=== PATIENT | female | born 1955 | race Caucasian/White ===

== ENCOUNTER 2018-01-07 18:56 | Inpatient (IN) ==
[2018-01-07] MEDS ORDERED: Ibuprofen 800 MG TABLET PO ONE (19:36)
[2018-01-07] MEDS ORDERED: 0.9 % Sodium Chloride 1,000 ML IVC ONE ×2 (19:43→21:41)
[2018-01-07 20:38] LABS: Bilirubin,Urine Negative (Negative); Blood,Urine Negative (Negative); Clarity,Urine Cloudy (Clear); Color,Urine Yellow (Yellow); Glucose,Urine (UA) Normal (Normal); Ketones,Urine Negative (Negative); Leukocyte Esterase,Urine Small (Negative); Nitrite,Urine Negative (Negative); Protein,Urine 30 mg/dL (Neg-Trace); Specific Gravity,Urine 1.022 (1.010-1.025); Urobilinogen,Urine Normal (Normal)
[2018-01-07 20:41] LABS: Bacteria,Urine None Seen per hpf (None-Few); Hyaline Casts,Urine None Seen per lpf (None-Few); Squamous Epithelial Cell,Urine Many per lpf (None-Few)
[2018-01-07 20:53] LABS: Basophils % 0.2 %; Eosinophils # 0.1 K/mcL (0.0-0.6); Eosinophils % 0.4 %; Hemoglobin 10.9 g/dL (11.5-15.4); Immature Granulocytes % 0.3 % (0-4); Lymphocytes # 0.8 K/mcL (0.6-4.6); Lymphocytes % 5.7 %; Mean Corpuscular HGB Conc 32.1 g/dL (31.6-35.5); Mean Corpuscular Hemoglobin 27.9 pg (28.0-33.3); Mean Platelet Volume 10.6 fL (9.4-12.4); Monocytes # 0.6 K/mcL (0.0-1.3); Monocytes % 4.9 %; Neutrophils # 11.6 K/mcL (1.6-8.9); Nucleated Red Blood Cells 0.2 /100 WBC (0); Platelet Count 306 K/mcL (140-400); Red Blood Count 3.91 M/mcL (3.82-4.97); Red Cell Distribution Width 14.4 % (11.5-14.5); Segmented Neutrophils % 88.5 %
[2018-01-07 21:22] LABS: Alanine Aminotransferase 49 Units/L (7-52); Albumin 3.5 g/dL (3.5-5.7); Albumin/Globulin Ratio 0.8 (1.1-2.2); Alkaline Phosphatase 365 Units/L (34-104); Aspartate Amino Transferase 35 Units/L (13-39); BUN/Creatinine Ratio 24 (6-26); Bilirubin,Direct 0.2 mg/dL (0.0-0.2); Bilirubin,Indirect 0.5 mg/dL (0.0-1.2); Bilirubin,Total 0.7 mg/dL (0.3-1.0); Blood Urea Nitrogen 23 mg/dL (8-23); Calcium 9.3 mg/dL (8.6-10.3); Carbon Dioxide 23 mEq/L (23-29); Chloride 101 mEq/L (98-107); Globulin 4.3 g/dL (2.4-3.5); Glucose 184 mg/dL (70-105); Osmolality,Calculated 288 (280-300); Potassium 3.7 mEq/L (3.5-5.1); Sodium 135 mEq/L (136-145); Total Protein 7.8 g/dL (6.4-8.9); eGFR For African Americans > 60 (> 60); eGFR For Non-African Americans 58 (> 60)
--- NOTE | 2018-01-07 21:39 | Emergency Department Note ---
Disposition Clinical Impression: Influenza Community acquired pneumonia Qualifiers: Laterality: right Lung location: lower lobe of lung Qualified Code(s): J18.1 - Lobar pneumonia, unspecified organism Disposition: Admitted As Inpatient Condition: Good Time of Disposition: 01:07 General Adult HPI - General Chief complaint: ED Fever Stated complaint: INFLUENZA Time Seen by Provider: 01/07/18 19:16 Source: patient, family Limitations: physical limitation Nursing Notes Reviewed: Yes Vital Signs Reviewed: Yes - History of Present Illness HPI Narrative: Female patient presenting complaints, complaining of generalized malaise. States she is also nauseated. Recently lost her to influenza. 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 Subsequently had a large amount of her colon removed. Has a large Cuban catheter in her abdomen that is straining her stool. Has not had her colectomy. Pain Scale: 3 - Related Data Allergies Allergy/AdvReac Type Severity Reaction Status Date / Time No Known Allergies Allergy Verified 01/07/18 19:00 All systems ED: reviewed and negative except as stated. Constitutional: Reports: fever (At home. Currently febrile here.) ENT ED: Denies: congestion Cardiovascular: Denies: chest pain, palpitations, syncope Respiratory: Denies: cough, dyspnea Gastrointestinal: Reports: nausea. Denies: abdominal pain, vomiting, diarrhea Genitourinary: Denies: urgency, dysuria, frequency Musculoskeletal: Denies: back pain, neck pain Neurological: Reports: weakness. Denies: headache Endocrine: Reports: fatigue Past Medical History - Past Medical History Attestation: Yes The following information was validated with the patient. Source: patient Medical history: Reports: CHF, hypertension Psychiatric history: Reports: no psych history MANAGER OF ENTERPRISE history: Reports: no MANAGER OF ENTER[employer] history - Social History Smoking Status: Never smoker Smokeless Tobacco Status: No Alcohol use: Reports: none Drug use: Reports: none Physical Exam - General Limitations: physical limitation General appearance: alert, in no apparent distress - Head Head exam: atraumatic, normocephalic, normal inspection - Eye Eye exam: Present: normal appearance, PERRL, EOMI, scleral icterus - ENT ENT exam: normal exam, normal oropharynx, mucous membranes moist - Neck Neck exam: Present: normal inspection, full ROM - Chest Chest inspection: Present: normal inspection, symmetric chest wall rise. Absent : tenderness - Respiratory Respiratory exam: Present: normal lung sounds bilaterally. Absent: respiratory distress - Cardiovascular Cardiovascular exam: Present: normal rhythm, tachycardia, normal heart sounds - Abdominal Exam Abdominal exam: Present: soft, other (Large-bore Cuban catheter protruding from abdomen draining stool. Midline scar healing appropriately does not appear to be infected. Does have a serosanguineous discharge.) - Extremities Exam Extremities exam: Present: normal inspection, full ROM. Absent: tenderness, pedal edema - Neurological Exam Neurological exam: Present: alert, oriented X3 - Psychiatric Psychiatric exam: Present: normal affect, normal mood - Skin Skin exam: Present: warm, dry, intact, normal color. Absent: rash Course Course Narrative: Female patient presenting to the emergency department complaining of not feeling well for 2 days. She states she has had a fever today. Patient has a history of necrotizing pancreatitis. She has had a bowel resection. She currently has a small Cuban catheter in her bowels that is draining. She is supposed to go for revision soon but has not and feeling well. She just recently lost her due to influenza. She is concerned that she now has influenza from all visitors that event hugging her. She denies any nausea or vomiting. She states she has has a generalized malaise. Aching all over. Denies any shortness of breath or chest pain. Currently has a port and has TPN. Patient has a positive for the flu. We are starting her on Tamiflu at this time. She has a mildly elevated white blood cell count. I do not believe she has a UTI. She has many squamous cells. - Reevaluation(s) Reevaluation #1: Patient has pneumonia and tested Positive for the flu. We have started her on Tamiflu as well as azithromycin and Rocephin. We will admit her to the hospital due to her multiple comorbidities. She is agreeable to this. Vital Signs Temperature 102.7 F H 01/07/18 19:02 Pulse Rate 147 01/07/18 19:02 Respiratory Rate 15 01/07/18 19:02 Blood Pressure 147/100 01/07/18 19:02 O2 Sat by Pulse Oximetry 97 01/07/18 19:02 Temperature 99.5 F 01/07/18 22:36 Pulse Rate 109 01/07/18 23:20 Respiratory Rate 22 01/08/18 00:35 Blood Pressure 119/74 01/08/18 00:35 O2 Sat by Pulse Oximetry 94 01/07/18 23:20 Oxygen Delivery Oxygen Delivery Room Air Medical Decision Making - Medical Records Medical records reviewed: Yes I reviewed the patient's medical records. - Lab Data Lab results reviewed: Yes I reviewed the patient's lab results. Result diagrams: 01/07/18 20:35 01/07/18 20:35 Lab Results 01/07/18 01/07/18 01/07/18 Range/Units 20:30 20:35 20:35 WBC 13.1 H D (4.3-11.1) K/mcL RBC 3.91 (3.82-4.97) M/mcL Hgb 10.9 L (11.5-15.4) g/dL Hct 34.0 L (35.3-44.9) % MCV 87.0 (83.0-100.0) fL MCH 27.9 L (28.0-33.3) pg MCHC 32.1 (31.6-35.5) g/dL RDW 14.4 (11.5-14.5) % Plt Count 306 (140-400) K/mcL MPV 10.6 (9.4-12.4) fL Immature Gran % 0.3 (0-4) % Seg Neutrophils % 88.5 % Lymphocytes % 5.7 % Monocytes % 4.9 % Eosinophils % 0.4 % Basophils % 0.2 % Neutrophils # 11.6 H (1.6-8.9) K/mcL Lymphocytes # 0.8 (0.6-4.6) K/mcL Monocytes # 0.6 (0.0-1.3) K/mcL Eosinophils # 0.1 (0.0-0.6) K/mcL Basophils # 0.0 (0.0-0.2) K/mcL Nucleated RBCs/100 WBC 0.2 H (0) /100 WBC Sodium 135 L (136-145) mEq/L Potassium 3.7 (3.5-5.1) mEq/L Chloride 101 (98-107) mEq/L Carbon Dioxide 23 (23-29) mEq/L BUN 23 (8-23) mg/dL Creatinine 0.97 (0.60-1.20) mg/dL Est GFR ( Amer) > 60 (> 60) Est GFR (Non-Af Amer) 58 L (> 60) BUN/Creatinine Ratio 24 (6-26) Glucose 184 H (70-105) mg/dL Calculated Osmolality 288 (280-300) Lactic Acid (0.5-2.2) mmol/L Calcium 9.3 (8.6-10.3) mg/dL Total Bilirubin 0.7 (0.3-1.0) mg/dL Direct Bilirubin 0.2 (0.0-0.2) mg/dL Indirect Bilirubin 0.5 (0.0-1.2) mg/dL AST 35 (13-39) Units/L ALT 49 (7-52) Units/L Alkaline Phosphatase 365 H (34-104) Units/L Serum Total Protein 7.8 (6.4-8.9) g/dL Albumin 3.5 (3.5-5.7) g/dL Globulin 4.3 H (2.4-3.5) g/dL Albumin/Globulin Ratio 0.8 L (1.1-2.2) Urine Color Yellow (Yellow) Urine Clarity Cloudy A (Clear) Urine pH 7.0 (5.0-8.0) pH Units Ur Specific [place] 1.022 (1.010-1.025) Urine Protein 30 H (Neg-Trace) mg/dL Urine Glucose (UA) Normal (Normal) mg/dL Urine Ketones Negative (Negative) mg/dL Urine Blood Negative (Negative) Urine Nitrite Negative (Negative) Urine Bilirubin Negative (Negative) Urine Urobilinogen Normal (Normal) mg/dL Ur Leukocyte Esterase Small H (Negative) Urine Microscopic RBC 5-15 H (0-3) per hpf Urine Microscopic WBC 5-15 H (0-3) per hpf Ur Squamous Epith Cells Many H (None-Few) per lpf Urine Bacteria None Seen (None-Few) per hpf Hyaline Casts None Seen (None-Few) per lpf Ur Culture Indicated? NO. (NO) 01/07/18 Range/Units 20:35 WBC (4.3-11.1) K/mcL RBC (3.82-4.97) M/mcL Hgb (11.5-15.4) g/dL Hct (35.3-44.9) % MCV (83.0-100.0) fL MCH (28.0-33.3) pg MCHC (31.6-35.5) g/dL RDW (11.5-14.5) % Plt Count (140-400) K/mcL MPV (9.4-12.4) fL Immature Gran % (0-4) % Seg Neutrophils % % Lymphocytes % % Monocytes % % Eosinophils % % Basophils % % Neutrophils # (1.6-8.9) K/mcL Lymphocytes # (0.6-4.6) K/mcL Monocytes # (0.0-1.3) K/mcL Eosinophils # (0.0-0.6) K/mcL Basophils # (0.0-0.2) K/mcL Nucleated RBCs/100 WBC (0) /100 WBC Sodium (136-145) mEq/L Potassium (3.5-5.1) mEq/L Chloride (98-107) mEq/L Carbon Dioxide (23-29) mEq/L BUN (8-23) mg/dL Creatinine (0.60-1.20) mg/dL Est GFR ( Amer) (> 60) Est GFR (Non-Af Amer) (> 60) BUN/Creatinine Ratio (6-26) Glucose (70-105) mg/dL Calculated Osmolality (280-300) Lactic Acid 1.5 (0.5-2.2) mmol/L Calcium (8.6-10.3) mg/dL Total Bilirubin (0.3-1.0) mg/dL Direct Bilirubin (0.0-0.2) mg/dL Indirect Bilirubin (0.0-1.2) mg/dL AST (13-39) Units/L ALT (7-52) Units/L Alkaline Phosphatase (34-104) Units/L Serum Total Protein (6.4-8.9) g/dL Albumin (3.5-5.7) g/dL Globulin (2.4-3.5) g/dL Albumin/Globulin Ratio (1.1-2.2) Urine Color (Yellow) Urine Clarity (Clear) Urine pH (5.0-8.0) pH Units Ur Specific [place] (1.010-1.025) Urine Protein (Neg-Trace) mg/dL Urine Glucose (UA) (Normal) mg/dL Urine Ketones (Negative) mg/dL Urine Blood (Negative) Urine Nitrite (Negative) Urine Bilirubin (Negative) Urine Urobilinogen (Normal) mg/dL Ur Leukocyte Esterase (Negative) Urine Microscopic RBC (0-3) per hpf Urine Microscopic WBC (0-3) per hpf Ur Squamous Epith Cells (None-Few) per lpf Urine Bacteria (None-Few) per hpf Hyaline Casts (None-Few) per lpf Ur Culture Indicated? (NO) - Radiology Data Radiology results reviewed: Yes I reviewed the patient's radiology results. Chest X-Ray 01/07/18 19:43 IMPRESSION: Questionable right upper lobe infiltrate. Trace left pleural effusion. D/ / Estrada Campos MD / Estrada Campos MD Interpreting Provider: Estrada Campos MD - EKG Data EKG #1 EKG attestation: Yes I reviewed and interpreted this EKG.
[2018-01-07] MEDS ORDERED: Prochlorperazine 10 MG/2 ML VIAL IVP STA (21:52)
--- NOTE | 2018-01-07 22:06 | Emergency Department Note ---
START Narrative - START START: I examined this patient and my medical decision-making was reviewed with the Resident Physician. I agree with the documented findings, disposition and treatment plan as described except to the extent set forth below. 62-year-old female presented to the emergency room with fevers. Positive sick contacts this past week as her last week from fluid pneumonia. She was concerned that she has developed influenza. Her workup here reveals positive flu. Slightly elevated white count. She was febrile. We gave her fluids and antipyretics. She seemed to be doing better in the ER. Her lactate was normal. She has a significant past medical history secondary to necrotizing pancreatitis. Said multiple surgeries [facility] on her abdomen. Her vitals continued to improve after her fever comes down and she will likely be discharged home with Tamiflu. Critical care time of 35 minutes spent in medical management.
[2018-01-07] MEDS ORDERED: Azithromycin 500 MG in D5% in Water 250 ML IVPB ONE (23:02)
[2018-01-07] MEDS ORDERED: cefTRIAXone 2,000 MG in Water for inj. (sterile) 20 ML 20 ML IVPB ONE (23:02)
--- NOTE | 2018-01-07 23:42 | Internal Med History&Physical ---
Date of Encounter: 01/08/18 Time of Encounter: 23:41 Assessment and Plan (1) Pneumonia Current visit: Yes Status: Acute 62 y F with nausea and admitting temp of 102.7 F, testing positive for Influenza , with concern for HCAP, given exposure to hospital within 90 days. CXR with possible RUL infiltrate. Will Initiate antibiotics. Initiate TAmiflu. Continuous pulse oximetry Qualifiers: Pneumonia type: due to influenza A virus Laterality: right Lung location : upper lobe of lung Qualified Code(s): J11.00 - Influenza due to unidentified influenza virus with unspecified type of pneumonia (2) Sepsis Current visit: Yes Status: Acute Temp > 100.4. WBC > 12k/mm3. Suspected source of infection present. Lactic Acid 1.5. No repeat lactic acid as initial WNL. Pt currently hemodynamically stable. Qualifiers: Sepsis type: sepsis due to unspecified organism Qualified Code(s): A41.9 - Sepsis, unspecified organism (3) Influenza Current visit: Yes Status: Acute See above. Nasopharyngeal swab positive for Influenza. (4) Diabetes mellitus Current visit: Yes Status: Acute Insulin sliding scale, adjust as needed. Implement hypoglycemia protocol, as needed. Qualifiers: Diabetes mellitus type: due to underlying condition Diabetes mellitus assisted insulin use: with termite control technician use Diabetes mellitus complication status: with unspecified complications Qualified Code(s): E08.8 - Diabetes mellitus due to underlying condition with unspecified complications; Z79.4 - senior care ( current) use of insulin; Z79.4 - termite control technician (current) use of insulin; Z79.4 - termite control technician (current) use of insulin; Z79.4 - termite control technician (current) use of insulin (5) On total parenteral nutrition (TPN) Current visit: Yes Status: Acute Pt on TPN at home 2/2 to surgical intervention for necrotizing pancreatitis. Nutrition on consult, appreciate coordination of care. (6) Encounter for postoperative wound care Current visit: Yes Status: Acute Patient requires daily wound care due to postsurgical status. We will place wound consult, appreciate coordination of care. (7) DVT prophylaxis Current visit: Yes Status: Acute Steve Score: Min 5. Reduced mobility (+3). Acute infection (+1). BMI > 30 (+1) . Pharmacologic prophylaxis indicated. Internal Medicine - H&P: HPI Chief complaint: Fever Admitted From: Home Plans for Post Hospital Care: Home History of present illness: Ms. 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 Pt endorses one-time episode of non-bloody emesis yesterday. Endorses nausea, which is chronic since pancreatitis. Denies SOB. Denies cough. Denies abdominal pain. Denies altered mental status. Pt's family verifies she is at baseline mentation. Pt endorses she has been in hospital within past 90 days for follow- up surgical revision 11/27 to necrotizing pancreatitis at [facility]. Pt's last week and was admitted last week with a diagnosis of pneumonia. Pt and family endorse she can eat a soft diet, including jello. She has a daily TPN requirement. Past Med Surg Social Fam HX - Past Medical History Medical history: CHF, hypertension Psychiatric history: no psych history - Social History Smoking Status: Never smoker Smokeless Tobacco Status: No Alcohol use: none Drug use: none Internal Medicine - H&P: Meds Citalopram Hydrobromide [Celexa] 20 mg PO DAILY 01/08/18 [History] Famotidine [Pepcid] 40 mg PO HS 01/08/18 [History] Insulin ASPART [NovoLOG] 0 unit SQ TIDWM 01/08/18 [History] Insulin Glargine [Lantus] 0 unit 01/08/18 [History] LORazepam [Ativan] 1 mg PO HS 01/08/18 [History] Levothyroxine [Synthroid] 200 mcg PO QAM 01/08/18 [History] Prochlorperazine Maleate [Compazine] 10 mg PO QAM 01/08/18 [History] Scopolamine [Transderm-Scop] 01/08/18 [History] Vitamin D 50,000 PO QWEEK 01/08/18 [History] 3 Allergy/AdvReac Type Severity Reaction Status Date / Time No Known Allergies Allergy Verified 01/07/18 19:00 All Systems PM: A 10-system review of systems was performed and is negative for pertinent findings except as documented above in the HPI. - Constitutional Vitals: Temp Pulse Resp BP Pulse Ox 99.5 F 116 22 116/74 93 01/07/18 22:36 01/07/18 22:58 01/07/18 22:58 01/07/18 22:58 01/07/18 22:58 General appearance: Present: A&O X 3, no acute distress, answers questions appropriately - Respiratory Respiratory exam: Present: CTAB. Absent: accessory muscle use, chest wall tenderness, respiratory distress - Cardiovascular Cardiovascular exam: Present: RRR, +S1, +S2. Absent: tachycardia - GI/Abdominal GI/Abdominal exam: Absent: distended, firm, tenderness, no peritoneal signs Additional comments: Ostomy bag in place, with drainage confined to bag. Midline shallow wound, with overlying abdominal pad. Non-oozing. No drainage. No surrounding erythema. No active bleeding. - Extremities Exam Extremities exam: Present: radial pulses palpable and symmetrical. Absent: calf tenderness, pedal edema - Psychiatric Psychiatric exam: Present: normal affect Internal Med - H&P Results - Labs CBC & Chem 7: 01/07/18 20:35 01/07/18 20:35 Labs: Short CBC 01/07/18 Range/Units 20:35 WBC 13.1 H D (4.3-11.1) K/mcL Hgb 10.9 L (11.5-15.4) g/dL Hct 34.0 L (35.3-44.9) % Plt Count 306 (140-400) K/mcL Neutrophils # 11.6 H (1.6-8.9) K/mcL BMP 01/07/18 20:35 Sodium 135 L Potassium 3.7 Chloride 101 Carbon Dioxide 23 BUN 23 Creatinine 0.97 Glucose 184 H Calcium 9.3 Liver Function 01/07/18 Range/Units 20:35 Total Bilirubin 0.7 (0.3-1.0) mg/dL Direct Bilirubin 0.2 (0.0-0.2) mg/dL AST 35 (13-39) Units/L ALT 49 (7-52) Units/L Alkaline Phosphatase 365 H (34-104) Units/L Albumin 3.5 (3.5-5.7) g/dL Urine 01/07/18 Range/Units 20:30 Urine Color Yellow (Yellow) Urine Clarity Cloudy A (Clear) Urine pH 7.0 (5.0-8.0) pH Units Ur Specific [place] 1.022 (1.010-1.025) Urine Protein 30 H (Neg-Trace) mg/dL Urine Glucose (UA) Normal (Normal) mg/dL - Impressions ITS Impressions Chest X-Ray 01/07/18 19:43 IMPRESSION: Questionable right upper lobe infiltrate. Trace left pleural effusion. D/ / Estrada Campos MD / Estrada Campos MD Interpreting Provider: Estrada Campos MD
[2018-01-08] MEDS ORDERED: Naloxone 0.4 MG/ML INJ IVP PRN (01:23)
[2018-01-08] MEDS ORDERED: Dextrose Gel 15 GM/37.5 ML TUBE PO PRN ×2 (02:10)
[2018-01-08] MEDS ORDERED: D5% in Water 1,000 ML IVC PRN (02:10)
[2018-01-08] MEDS ORDERED: *HR* Dextrose 50 % in Water (Syg) 50 ML SYRINGE IVP PRN (02:10)
[2018-01-08] MEDS: Ondansetron 4 MG/2 ML VIAL IVP PRN ×3 (02:20→19:36)
[2018-01-08] MEDS ORDERED: 0.9 % Sodium Chloride 500 ML IVC ONE ×2 (02:57→16:01)
[2018-01-08 04:22] LABS: Hematocrit 31.3 % (35.3-44.9); Hemoglobin 10.2 g/dL (11.5-15.4); Mean Corpuscular HGB Conc 32.6 g/dL (31.6-35.5); Mean Corpuscular Hemoglobin 28.2 pg (28.0-33.3); Mean Corpuscular Volume 86.5 fL (83.0-100.0); Mean Platelet Volume 10.2 fL (9.4-12.4); Platelet Count 213 K/mcL (140-400); Red Blood Count 3.62 M/mcL (3.82-4.97); Red Cell Distribution Width 14.5 % (11.5-14.5)
[2018-01-08] MEDS: Famotidine 20 MG TABLET PO SCH ×2 (05:16→19:38)
[2018-01-08] MEDS: *HR* Heparin 5,000 UNIT/ML VIAL SQ SCH ×2 (05:16→17:35)
[2018-01-08 05:51] LABS: Calcium 8.9 mg/dL (8.6-10.3); Potassium 3.3 mEq/L (3.5-5.1)
[2018-01-08] MEDS: Insulin LISPRO 300 UNITS/3 ML VIAL SQ SCH ×4 (08:21→19:43)
[2018-01-08] MEDS ORDERED: Scopolamine Patch 1.5 MG PATCH.TD72 TD SCH (10:00)
[2018-01-08] MEDS ORDERED: D10% in Water 500 ML IVC PRN (11:08)
[2018-01-08] MEDS: cefTRIAXone 1,000 MG in Water for inj. (sterile) 20 ML 10 ML IVP SCH (11:49)
--- NOTE | 2018-01-08 14:55 | Internal Med Progress Note ---
Date of Encounter: 01/08/18 Time of Encounter: 11:40 - Assessment and plan (1) Sepsis Current Visit: Yes Status: Acute Assessment and plan: Pt does meet sepsis criteria with elevated WBC, fever and source of inf as PNA Cont empirical abx Rocephin + Azothromycin blood cx ordered since she does have chronic PICC for TPN Qualifiers: Sepsis type: sepsis due to unspecified organism Qualified Code(s): A41.9 - Sepsis, unspecified organism (2) Community acquired pneumonia Current Visit: Yes Status: Acute Assessment and plan: mostly bacterial cont empirical abx f/u on sputum cx, blood cx Qualifiers: Laterality: right Lung location: lower lobe of lung Qualified Code(s): J18.1 - Lobar pneumonia, unspecified organism (3) Influenza Current Visit: Yes Status: Acute Assessment and plan: on Tamiflu on isolation precautions (4) Diabetes mellitus Current Visit: Yes Status: Acute Assessment and plan: on ISS Qualifiers: Diabetes mellitus type: due to underlying condition Diabetes mellitus senior living insulin use: with senior living use Diabetes mellitus complication status: with unspecified complications Qualified Code(s): E08.8 - Diabetes mellitus due to underlying condition with unspecified complications; Z79.4 - retirement ( current) use of insulin; Z79.4 - moth exterminator (current) use of insulin; Z79.4 - retirement (current) use of insulin; Z79.4 - moth exterminator (current) use of insulin (5) Encounter for postoperative wound care Current Visit: Yes Status: Acute Assessment and plan: Wound care consulted will do wound cx does not look infected cont local wound care need to f/u with her regular surgeon from [facility] closely (6) On total parenteral nutrition (TPN) Current Visit: Yes Status: Acute Assessment and plan: cont TPN [employer] on board - Subjective Interval history: Ms. 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 She does have fu like symptoms. Also c/o nausea, which is chronic since pancreatitis. Denies SOB. Denies cough. Denies abdominal pain. Denies altered mental status. Pt's family verifies she is at baseline mentation. Pt endorses she has been in hospital within past 90 days for follow-up surgical revision 2/2 to necrotizing pancreatitis at [facility]. Pt's last week a diagnosis of pneumonia and flu. Pt is on chronic TPN and can eat a soft diet, including jello. She does have PICC line She is alert, awake and O x 3. Denied any CP / SOB. Feels little better today. Pt and her daughter c/o some discharge through the chronic open wound on her abdomen. - Constitutional Vitals: Temp Pulse Resp BP Pulse Ox 99.8 F H 116 18 108/68 96 01/08/18 10:00 01/08/18 07:18 01/08/18 10:00 01/08/18 10:00 01/08/18 10:00 General appearance: Present: A&O X 3, no acute distress, answers questions appropriately - Head Head exam: Present: atraumatic, normal inspection - Neck Neck exam general surgery: Present: supple - Respiratory Respiratory exam: Present: decreased breath sounds, wheezes (mild). Absent: rales, respiratory distress, rhonchi - Cardiovascular Cardiovascular exam: Present: RRR, +S1, +S2. Absent: tachycardia - GI/Abdominal GI/Abdominal exam: Present: normal bowel sounds, soft, tenderness (mild). Absent: rebound, rigid Additional comments: 6x6 cm size chronic non healing ulcer with some mild purulent drainage noticed over abdomen wall anteriorly. Overall some healthy granulation tissue noticed. - Extremities Exam Extremities exam: Absent: calf tenderness, pedal edema, tenderness - Back Exam Back exam: Absent: CVA tenderness (L), CVA tenderness (R) - Neurological Exam Neurological exam: Present: alert, oriented X3 - Psychiatric Psychiatric exam: Present: normal affect, normal mood Internal Medicine: Result - Labs CBC & Chem 7: 01/09/18 04:07 01/09/18 03:51 Labs: Short CBC 01/08/18 Range/Units 04:00 WBC 6.0 D (4.3-11.1) K/mcL Hgb 10.2 L (11.5-15.4) g/dL Hct 31.3 L (35.3-44.9) % Plt Count 213 (140-400) K/mcL BMP 01/08/18 04:00 Sodium 135 L Potassium 3.3 L Chloride 100 Carbon Dioxide 25 BUN 24 H Creatinine 1.35 H Glucose 165 H Calcium 8.9 Consult Discharge Plan - Plan Referrals: Susan Costa, [facility] [Primary Care Provider] -
[2018-01-08] MEDS ORDERED: 0.9 % Sodium Chloride 500 ML ONE (16:04)
[2018-01-08] MEDS ORDERED: 0.9 % Sodium Chloride 1,000 ML ONE (16:04)
[2018-01-08] MEDS: Acetaminophen 325 MG TABLET PO PRN (16:08)
[2018-01-08] MEDS: 0.9 % Sodium Chloride 1,000 ML IVC SCH (16:31)
[2018-01-08] MEDS ORDERED: Clinimix E 5%-15% SOLUTION 2,000 ML with MVI, adult with vitamin K 10 ML IVC SCH (17:00)
[2018-01-08] MEDS: Azithromycin 500 MG in D5% in Water 250 ML IVPB SCH (17:30)
[2018-01-08] MEDS: Oseltamivir Phosphate 30 MG CAPSULE PO SCH (19:38)
[2018-01-08] MEDS: *HR* LORazepam 1 MG TABLET PO SCH (19:38)
[2018-01-08] MEDS: Insulin DETEMIR 100 UNIT/ML X5UNITS SQ SCH (19:41)
[2018-01-08 19:57] LABS: Adenovirus Not Detected (Not Detect); Bordetella Pertussis Not Detected (Not Detect); Chlamydophila pneumoniae Not Detected (Not Detect); Coronavirus 229E Not Detected (Not Detect); Coronavirus HKU1 Not Detected (Not Detect); Coronavirus NL63 Not Detected (Not Detect); Coronavirus OC43 Not Detected (Not Detect); Human Metapneumovirus Not Detected (Not Detect); Human Rhinovirus/Enterovirus Not Detected (Not Detect); Influenza A Subtype 2009 H1 Not Detected (Not Detect); Influenza A Untypeable Not Detected (Not Detect); Influenza B Not Detected (Not Detect); Mycoplasma pneumoniae Not Detected (Not Detect); Parainfluenza Virus 1 Not Detected (Not Detect); Parainfluenza Virus 2 Not Detected (Not Detect); Parainfluenza Virus 3 Not Detected (Not Detect); Parainfluenza Virus 4 Not Detected (Not Detect); Respiratory Syncytial Virus Not Detected (Not Detect)
[2018-01-08] MEDS ORDERED: NON-FORMULARY MEDICATION 1 EACH EACH (Famotidine [Pepcid] 40 MG) PO SCH (21:00)
[2018-01-09] MEDS: Acetaminophen 325 MG TABLET PO PRN (01:12)
[2018-01-09] MEDS: 0.9 % Sodium Chloride 1,000 ML IVC SCH (01:18)
[2018-01-09] MEDS: Ondansetron 4 MG/2 ML VIAL IVP PRN ×2 (01:21→18:19)
[2018-01-09 04:59] LABS: BUN/Creatinine Ratio 23 (6-26); Blood Urea Nitrogen 22 mg/dL (8-23); Calcium 7.9 mg/dL (8.6-10.3); Carbon Dioxide 26 mEq/L (23-29); Chloride 97 mEq/L (98-107); Glucose 248 mg/dL (70-105); Magnesium 1.6 mg/dL (1.6-2.6); Osmolality,Calculated 282 (280-300); Phosphorous 3.2 mg/dL (2.7-4.5); Potassium 3.4 mEq/L (3.5-5.1); Sodium 130 mEq/L (136-145); Triglycerides 111 mg/dL (< 150); eGFR For African Americans > 60 (> 60); eGFR For Non-African Americans > 60 (> 60)
[2018-01-09 05:02] LABS: Basophils % 0.2 %; Eosinophils % 0.2 %; Hematocrit 27.3 % (35.3-44.9); Hemoglobin 8.9 g/dL (11.5-15.4); Immature Granulocytes % 0.5 % (0-4); Lymphocytes # 0.8 K/mcL (0.6-4.6); Lymphocytes % 19.5 %; Mean Corpuscular HGB Conc 32.6 g/dL (31.6-35.5); Mean Corpuscular Hemoglobin 28.3 pg (28.0-33.3); Mean Corpuscular Volume 86.7 fL (83.0-100.0); Mean Platelet Volume 10.8 fL (9.4-12.4); Monocytes # 0.4 K/mcL (0.0-1.3); Monocytes % 8.8 %; Neutrophils # 2.9 K/mcL (1.6-8.9); Platelet Count 168 K/mcL (140-400); Red Blood Count 3.15 M/mcL (3.82-4.97); Red Cell Distribution Width 14.3 % (11.5-14.5); Segmented Neutrophils % 70.8 %
[2018-01-09] MEDS: *HR* Heparin 5,000 UNIT/ML VIAL SQ SCH ×2 (05:32→16:56)
[2018-01-09] MEDS: Oseltamivir Phosphate 30 MG CAPSULE PO SCH ×2 (09:03→20:44)
[2018-01-09] MEDS: Insulin LISPRO 300 UNITS/3 ML VIAL SQ SCH ×4 (09:06→20:44)
[2018-01-09] MEDS: cefTRIAXone 1,000 MG in Water for inj. (sterile) 20 ML 10 ML IVP SCH (11:58)
--- NOTE | 2018-01-09 15:53 | Internal Med Progress Note ---
Date of Encounter: 01/09/18 Time of Encounter: 11:00 - Assessment and plan (1) Sepsis Current Visit: Yes Status: Acute Assessment and plan: Pt does meet sepsis criteria with elevated WBC, fever T max 102.8 and source of inf as PNA Still having fever spikes.. has last T max 102.8 last night Cont empirical abx Rocephin + Azothromycin blood cx - P Patient does need to stay in the hospital more than 2 midnights due to her complex medical problems and high risk for septic shock. So we will change her to full admission today. I did review my colleague Dr. Oconnor H & P including HPI , PMH, PSH, SH, and ROS no changes noticed.. Family hsitory also reviewed and non contribuitory to current problem. Qualifiers: Sepsis type: sepsis due to unspecified organism Qualified Code(s): A41.9 - Sepsis, unspecified organism (2) Community acquired pneumonia Current Visit: Yes Status: Acute Assessment and plan: mostly bacterial cont empirical abx f/u on sputum cx, blood cx Qualifiers: Laterality: right Lung location: lower lobe of lung Qualified Code(s): J18.1 - Lobar pneumonia, unspecified organism (3) Influenza Current Visit: Yes Status: Acute Assessment and plan: on Tamiflu on isolation precautions (4) Diabetes mellitus Current Visit: Yes Status: Acute Assessment and plan: on ISS Qualifiers: Diabetes mellitus type: due to underlying condition Diabetes mellitus fdc insulin use: with fdc use Diabetes mellitus complication status: with unspecified complications Qualified Code(s): E08.8 - Diabetes mellitus due to underlying condition with unspecified complications; Z79.4 - alf ( current) use of insulin; Z79.4 - intermediate accountant (current) use of insulin; Z79.4 - alf (current) use of insulin; Z79.4 - intermediate accountant (current) use of insulin (5) Encounter for postoperative wound care Current Visit: Yes Status: Acute Assessment and plan: Wound care eval done wound cx- P does not look infected cont local wound care as per wound care recommendations need to f/u with her regular surgeon from [facility] closely (6) On total parenteral nutrition (TPN) Current Visit: Yes Status: Acute Assessment and plan: cont TPN Will add more Sodium since her Sodium slightly on lower side Recovery Room Nurse on board - Subjective Interval history: Ms. 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 She does have fu like symptoms. Also c/o nausea, which is chronic since pancreatitis. Denies SOB. Denies cough. Denies abdominal pain. Denies altered mental status. Pt's family verifies she is at baseline mentation. Pt endorses she has been in hospital within past 90 days for follow-up surgical revision / to necrotizing pancreatitis at [facility]. Pt's last week a diagnosis of pneumonia and flu. Pt is on chronic TPN and can eat a soft diet, including jello. She does have PICC line She is alert, awake and O x 3. Denied any CP / SOB. Feels little better today. Denied any N/V. Still has some Cough - Constitutional Vitals: Temp Pulse Resp BP Pulse Ox 98.9 F 87 16 138/79 97 01/09/18 15:02 01/09/18 15:02 01/09/18 15:02 01/09/18 15:02 01/09/18 15:02 General appearance: Present: A&O X 3, no acute distress, answers questions appropriately - Head Head exam: Present: atraumatic, normal inspection - Neck Neck exam general surgery: Present: supple - Respiratory Respiratory exam: Present: decreased breath sounds. Absent: rales, respiratory distress, rhonchi, wheezes - Cardiovascular Cardiovascular exam: Present: RRR, +S1, +S2. Absent: tachycardia - GI/Abdominal GI/Abdominal exam: Present: normal bowel sounds, soft, tenderness. Absent: rebound, rigid Additional comments: 6x6 cm size chronic non healing ulcer with some mild purulent drainage noticed over abdomen wall anteriorly. Overall some healthy granulation tissue noticed. - Extremities Exam Extremities exam: Absent: calf tenderness, pedal edema, tenderness - Back Exam Back exam: Absent: CVA tenderness (L), CVA tenderness (R) - Neurological Exam Neurological exam: Present: alert, oriented X3 - Psychiatric Psychiatric exam: Present: normal affect, normal mood Internal Medicine: Result - Labs CBC & Chem 7: 01/09/18 04:07 01/09/18 03:51 Labs: Short CBC 01/09/18 Range/Units 04:07 WBC 4.1 L (4.3-11.1) K/mcL Hgb 8.9 L (11.5-15.4) g/dL Hct 27.3 L (35.3-44.9) % Plt Count 168 (140-400) K/mcL Neutrophils # 2.9 (1.6-8.9) K/mcL [facility] [place] 01/09/18 03:51 Sodium 130 L Potassium 3.4 L Chloride 97 L Carbon Dioxide 26 BUN 22 Creatinine 0.94 Glucose 248 H Calcium 7.9 L Consult Discharge Plan - Plan Referrals: Susan Costa, [employer]ATIONS TAILOR [Primary Care Provider] -
[2018-01-09] MEDS: Azithromycin 500 MG in D5% in Water 250 ML IVPB SCH (16:55)
[2018-01-09] MEDS ORDERED: Clinimix E 5%-15% SOLUTION 2,000 ML with MVI, adult with vitamin K 10 ML IVC SCH (17:00)
[2018-01-09] MEDS: Famotidine 20 MG TABLET PO SCH (20:44)
[2018-01-09] MEDS: *HR* LORazepam 1 MG TABLET PO SCH (20:44)
[2018-01-09] MEDS: Insulin DETEMIR 100 UNIT/ML X5UNITS SQ SCH (20:44)
[2018-01-10 02:56] LABS: Basophils % 0.3 %; Eosinophils # 0.2 K/mcL (0.0-0.6); Eosinophils % 2.4 %; Hematocrit 29.2 % (35.3-44.9); Hemoglobin 9.4 g/dL (11.5-15.4); Immature Granulocytes % 0.3 % (0-4); Lymphocytes # 1.4 K/mcL (0.6-4.6); Lymphocytes % 22.6 %; Mean Corpuscular HGB Conc 32.2 g/dL (31.6-35.5); Mean Corpuscular Hemoglobin 27.9 pg (28.0-33.3); Mean Corpuscular Volume 86.6 fL (83.0-100.0); Mean Platelet Volume 10.6 fL (9.4-12.4); Monocytes # 0.6 K/mcL (0.0-1.3); Monocytes % 9.3 %; Platelet Count 201 K/mcL (140-400); Red Blood Count 3.37 M/mcL (3.82-4.97); Red Cell Distribution Width 13.9 % (11.5-14.5); Segmented Neutrophils % 65.1 %
[2018-01-10 03:12] LABS: BUN/Creatinine Ratio 27 (6-26); Blood Urea Nitrogen 22 mg/dL (8-23); Calcium 8.8 mg/dL (8.6-10.3); Carbon Dioxide 31 mEq/L (23-29); Chloride 96 mEq/L (98-107); Glucose 266 mg/dL (70-105); Magnesium 1.9 mg/dL (1.6-2.6); Osmolality,Calculated 287 (280-300); Phosphorous 3.5 mg/dL (2.7-4.5); Potassium 3.7 mEq/L (3.5-5.1); Sodium 132 mEq/L (136-145); eGFR For African Americans > 60 (> 60); eGFR For Non-African Americans > 60 (> 60)
[2018-01-10] MEDS: *HR* Heparin 5,000 UNIT/ML VIAL SQ SCH (05:37)
[2018-01-10] MEDS: Oseltamivir Phosphate 30 MG CAPSULE PO SCH (08:07)
[2018-01-10] MEDS: Insulin LISPRO 300 UNITS/3 ML VIAL SQ SCH ×2 (08:07→14:11)
[2018-01-10 11:21] VITALS: BP 111/76
[2018-01-10] MEDS: cefTRIAXone 1,000 MG in Water for inj. (sterile) 20 ML 10 ML IVP SCH (14:22)
[2018-01-10] MEDS ORDERED: FLUARIX QUAD 2017-18 36MOS UP/PF 0.5 ML SYRINGE IM ONE (14:26)
--- NOTE | 2018-01-10 14:30 | Discharge Summary ---
- NOTES TO OUTPATIENT PROVIDER Notes to Outpatient Provider: f/u with PCP in one week. f/u with Surgery as soon as possible regarding your wound. Continue TPN as before Date of Encounter: 01/10/18 Time of Encounter: 14:23 - Discharge Diagnosis (1) Sepsis Priority: Primary Status: Acute Qualifiers: Sepsis type: sepsis due to unspecified organism Qualified Code(s): A41.9 - Sepsis, unspecified organism (2) Community acquired pneumonia Priority: Primary Status: Acute Qualifiers: Laterality: right Lung location: lower lobe of lung Qualified Code(s): J18.1 - Lobar pneumonia, unspecified organism (3) Influenza Priority: Primary Status: Acute (4) Diabetes mellitus Priority: Secondary Status: Acute Qualifiers: Diabetes mellitus type: due to underlying condition Diabetes mellitus assisted insulin use: with assisted use Diabetes mellitus complication status: with unspecified complications Qualified Code(s): E08.8 - Diabetes mellitus due to underlying condition with unspecified complications; 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 She does have fu like symptoms. Also c/o nausea, which is chronic since pancreatitis. Denies SOB. Denies cough. Denies abdominal pain. Denies altered mental status. Pt's family verifies she is at baseline mentation. Pt endorses she has been in hospital within past 90 days for follow-up surgical revision 11/27 to necrotizing pancreatitis at [facility]. Pt's last week a diagnosis of pneumonia and flu. Pt is on chronic TPN and can eat a soft diet, including jello. She does have PICC line. Pt was admitted in the hospital and started her on empirical abx Rocephin and Azithromycin. Her influenza A came back as positive so started her on Tamiflu. Her blood cx did not grow anything in 2 days. She remained afebrile for 24 hrs. Pt does have chronic non healing ulcer over her abdomen, which does not look infected, recommend to continue local dressing and f/u with her surgeon as an out pt. Pt is breathing comfortably on RA. Will d/c her home in stable condition. Recommend to continue same TPN orders as before. - Time Spent with Patient Total time spent providing and/or coordinating discharge services: - Discharge Medications Prescriptions: levoFLOXacin [Levaquin] 500 mg PO DAILY #3 tablet Oseltamivir [Tamiflu] 75 mg PO BID #5 capsule Home Medications: Citalopram Hydrobromide [Celexa] 20 mg PO DAILY 01/08/18 [History] Ergocalciferol (VITAMIN D2) [Vitamin D2] 50,000 unit PO QWEEK 01/08/18 [History] Famotidine [Pepcid] 40 mg PO HS 01/08/18 [History] Insulin Glargine [Lantus] 0 - 3 unit SQ DAILY 01/08/18 [History] Insulin LISPRO [Humalog Kwikpen U-100] 0 - 3 unit SQ TIDWM 01/08/18 [History] LORazepam [Ativan] 1 mg PO HS 01/08/18 [History] Levothyroxine [Synthroid] 200 mcg PO QAM 01/08/18 [History] Prochlorperazine Maleate [Compazine] 10 mg PO BID 01/08/18 [History] Scopolamine [Transderm-Scop] 1 each TD Q72H 01/08/18 [History] Oseltamivir [Tamiflu] 75 mg PO BID #5 capsule 01/10/18 [Rx] levoFLOXacin [Levaquin] 500 mg PO DAILY #3 tablet 01/10/18 [Rx] Allergies/Adverse Reactions: 3 Allergy/AdvReac Type Severity Reaction Status Date / Time No Known Allergies Allergy Verified 01/07/18 19:00 Date of admission: 01/09/18 15:46 Primary care physician: MAGDI Headley - Constitutional Vitals: Temp Pulse Resp BP Pulse Ox 98.1 F 84 16 111/76 95 01/10/18 11:15 01/10/18 11:15 01/10/18 11:15 01/10/18 11:15 01/10/18 11:15 General appearance: Present: A&O X 3, no acute distress, answers questions appropriately - Head Head exam: Present: atraumatic, normal inspection - Neck Neck exam general surgery: Present: supple - Respiratory Respiratory exam: Present: decreased breath sounds. Absent: rales, respiratory distress, rhonchi, wheezes - Cardiovascular Cardiovascular exam: Present: RRR, +S1, +S2. Absent: tachycardia - GI/Abdominal GI/Abdominal exam: Present: normal bowel sounds, soft. Absent: rebound, rigid, tenderness Additional comments: dressing placed over abdomen ulcer. No cellulites / erythema noticed around the ulcer area. - Extremities Exam Extremities exam: Absent: calf tenderness, pedal edema, tenderness - Neurological Exam Neurological exam: Present: alert, oriented X3 - Psychiatric Psychiatric exam: Present: normal affect, normal mood - Patient Status Disposition: Home, Self-Care Condition: Good Overall status at discharge: patient is back to baseline - Discharge Instructions Follow Up With: Susan Costa TOOL CLERK [Primary Care Provider] - - Diet and Activity Activity: increase activity as tolerated Diet: advance to your usual diet
[2018-01-10] MEDS ORDERED: Clinimix E 5%-15% SOLUTION 2,000 ML with MVI, adult with vitamin K 10 ML IVC SCH (17:00)
== END 2018-01-10 15:26 | disposition home or self-care (01) | DRG 871 ==
LOC: EMEROO 18:56 → 2ANU 18:56
PROVIDERS: ADMIT Family Medicine; ATTEND Family Medicine